=== PATIENT | female | born 2000 | race Caucasian/White ===

== ENCOUNTER 2019-01-03 11:18 | Emergency (ER) | payer OTHER ==
[~2019-01-03] VITALS: Ht 160 cm; Wt 70.8 kg
[2019-01-03] MEDS ORDERED: VALACYCLOVIR1000 MG PO (12:21)
== END 2019-01-03 12:44 | disposition home or self-care (01) ==
LOC: ED 11:18
DX: A60.00 Herpesviral infection of urogenital system, unspecified (principal); F17.200 Nicotine dependence, unspecified, uncomplicated
CPT/HCPCS: 99283